=== PATIENT | male | born 2005 | race Two or more races ===

== ENCOUNTER 2025-03-19 03:10 | Emergency (ER) | payer MEDICAID, OTHER ==
[~2025-03-19] VITALS: Ht 172.7 cm; Wt 72.0 kg
[2025-03-19 03:11] VITALS: BP 134/70; PULSE 85; RESP 18; TEMP 98.8; O2SAT 97
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
[2025-03-19] MEDS: HYDROcodone-ACET 5/325MG TAB PO ONE (03:49)
[2025-03-19] MEDS: IBUPROFEN 600 MG TAB PO ONE (03:50)
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
== END 2025-03-19 04:47 | disposition home or self-care (01) ==
LOC: ER 03:10 → EDBD 03:10 → ER 04:47
DX: S50.02XA Contusion of left elbow, initial encounter (principal); V89.2XXA Person injured in unspecified motor-vehicle accident, traffic, initial encounter; Y93.I9 Activity, other involving external motion; Y92.488 Other paved roadways as the place of occurrence of the external cause; Y99.8 Other external cause status
CPT/HCPCS: 73080